=== PATIENT | female | born 1985 | race Caucasian/White ===

== ENCOUNTER 2016-10-11 22:16 | Inpatient (IN) | payer BC, MEDICAID ==
[~2016-10-11] VITALS: Ht 157.5 cm; Wt 77.6 kg
[2016-10-11 22:43] VITALS: Ht 157.5 cm; Wt 77.6 kg
[2016-10-11] MEDS ORDERED: PENICILLIN G 5 MU in SODIUM CHLORIDE 0.9% 250 ML IV ONE (22:55)
[2016-10-11] MEDS ORDERED: LIDOCAINE 1% 30 ML PF INFILTRATE ONE (22:55)
[2016-10-11] MEDS ORDERED: OXYTOCIN 15 UNITS/250 ML NS 250 ML IV SCH (22:55)
[2016-10-11] MEDS ORDERED: MORPHINE 4 MG/ML SYR IV PRN (22:55)
[2016-10-11] MEDS ORDERED: CEFAZOLIN (LD/OB) 100 ML IV PRN (22:55)
[2016-10-11] MEDS ORDERED: TERBUTALINE 1 MG/ML VIAL SUBQ PRN (22:55)
[2016-10-11] MEDS ORDERED: OXYTOCIN 15 UNITS/250 ML NS 15 UNITS in PART FILL PIGGYBACK 1 EA IV SCH (22:55)
[2016-10-11] MEDS ORDERED: LACT RINGERS 1,000 ML IV SCH (22:55)
[2016-10-11] MEDS ORDERED: ONDANSETRON 4 MG VIAL IV PRN (22:55)
[2016-10-11] MEDS ORDERED: ALU/MAG/SIM 30 ML UDC PO PRN (22:55)
[2016-10-11] MEDS ORDERED: ACETAMINOPHEN 325 MG TAB PO PRN (22:55)
[2016-10-11] MEDS ORDERED: METOCLOPRAMIDE 10 MG/2 ML VIAL IV PUSH PRN (22:55)
[2016-10-11] MEDS ORDERED: LIDOCAINE 1% BUFFERED 1 ML SYR INTRADERM PRN (22:55)
[2016-10-11] MEDS ORDERED: PROMETHAZINE 25 MG/ML VIAL IV PRN (22:55)
[2016-10-11] MEDS ORDERED: FAMOTIDINE 20 MG TAB PO PRN (22:55)
[2016-10-11] MEDS ORDERED: FAMOTIDINE 20 MG INJ IV PRN (22:55)
[2016-10-12] VITALS (29 sets, daily range): BP systolic 88–145; RESP 16–23; TEMP 98.1–98.4
[2016-10-12] MEDS ORDERED: ROPIV/FENT 0.2%-2MCG/ML 100 ML EPIDURAL ONE (00:14)
[2016-10-12] MEDS ORDERED: LIDOCAINE 1% 30 ML PF ONE (00:14)
[2016-10-12] MEDS ORDERED: FENTANYL 100 MCG/2 ML AMP ONE (00:14)
[2016-10-12] MEDS ORDERED: PENICILLIN G 2.5 MU in SODIUM CHLORIDE 0.9% 100 ML IV SCH (02:55)
[2016-10-12] MEDS ORDERED: MISSING DOSE XX ONE ×2 (04:00→17:30)
[2016-10-12] MEDS ORDERED: CALCIUM GLUC 1000 MG/10 ML IV PUSH PRN (09:25)
[2016-10-12] MEDS ORDERED: MAGNESIUM 4GM/50ML (LD/OB) 50 ML IV ONE (09:25)
[2016-10-12] MEDS ORDERED: DERMOPLAST SPRAY TOPICAL PRN (09:25)
[2016-10-12] MEDS ORDERED: ACETAMINOPHEN 325 MG TAB PO PRN (09:25)
[2016-10-12] MEDS ORDERED: MAGNESIUM 50 GM/500 ML (LD/OB) 500 ML IV SCH (09:25)
[2016-10-12] MEDS ORDERED: ASTRINGENT MED PADS 40'S TOPICAL PRN (09:25)
[2016-10-12] MEDS ORDERED: MAG HYDROX 30 ML UDC PO PRN (09:25)
[2016-10-12] MEDS ORDERED: OXYTOCIN 15 UNITS/250 ML NS 250 ML IV SCH (09:25)
[2016-10-12] MEDS ORDERED: MEASLES,MUMPS,RUBELLA VAC SUBQ.VACC ONE (09:25)
[2016-10-12] MEDS ORDERED: BISACODYL 10 MG SUPP RECTAL PRN (09:25)
[2016-10-12] MEDS ORDERED: ZOLPIDEM 5 MG TAB PO PRN (09:25)
[2016-10-12] MEDS ORDERED: TDaP 0.5 ML VIAL IM.VACC ONE (09:25)
[2016-10-12] MEDS ORDERED: LIDOCAINE 1% BUFFERED 1 ML SYR INTRADERM PRN (09:25)
[2016-10-12] MEDS: MISOPROSTOL 200 MCG TAB PO SCH ×2 (10:37→17:49)
[2016-10-12] MEDS: LABETALOL 100 MG TAB PO SCH ×2 (10:37→17:49)
[2016-10-12] MEDS: Ibuprofen 600 MG TAB PO SCH ×2 (13:45→18:00)
[2016-10-12] MEDS: IBUPROFEN LQ 120 ML BTL PO SCH ×2 (19:00→20:17)
[2016-10-12] MEDS: LACT RINGERS 1,000 ML IV SCH (20:17)
[2016-10-12] MEDS: DOCUSATE SOD 100 MG CAP PO SCH (21:07)
[2016-10-13] VITALS (13 sets, daily range): BP systolic 91–130; RESP 16–20; TEMP 97.7–98.9
[2016-10-13] MEDS: IBUPROFEN LQ 120 ML BTL PO SCH ×4 (02:22→17:40)
[2016-10-13] MEDS: LABETALOL 100 MG TAB PO SCH (02:23)
[2016-10-13] MEDS: LACT RINGERS 1,000 ML IV SCH (02:28)
[2016-10-13] MEDS ORDERED: LABETALOL 100 MG TAB PO SCH (09:00)
[2016-10-13] MEDS: DOCUSATE SOD 100 MG CAP PO SCH ×2 (17:40→20:11)
[2016-10-13] MEDS ORDERED: MISSING DOSE XX ONE (23:45)
[2016-10-14] MEDS: IBUPROFEN LQ 120 ML BTL PO SCH ×3 (00:12→11:24)
[2016-10-14 05:06] VITALS: BP_SYST 88; RESP 16; TEMP 97.6
[2016-10-14 05:12] VITALS: BP_SYST 120
[2016-10-14] MEDS: DOCUSATE SOD 100 MG CAP PO SCH (08:29)
[2016-10-14 10:06] VITALS: BP_SYST 128; RESP 16; TEMP 98.3
[2016-10-14 17:09] VITALS: BP_SYST 144; RESP 16; TEMP 98
[2016-10-14 17:20] VITALS: BP_SYST 144; RESP 16; TEMP 98
== END 2016-10-14 17:50 | disposition home or self-care (01) | DRG 775 ==
LOC: LDOP 22:16 → LD 23:01 → OB 10-13 13:37
PROVIDERS: ADMIT Obstetrics & Gynecology; ATTEND Obstetrics & Gynecology
PROC: 0W8NXZZ Division of Female Perineum, External Approach (ICD-10-PCS; principal; 2016-10-12)
PROC: 10E0XZZ Delivery of Products of Conception, External Approach (ICD-10-PCS; 2016-10-12)
PROC: 0UQMXZZ Repair Vulva, External Approach (ICD-10-PCS; 2016-10-12)
CPT/HCPCS: 59025; 80053; 81002; 82803; 85025; 86850; 86900; 86901